=== PATIENT | female | born 1965 | race Caucasian/White ===

== ENCOUNTER 2024-07-29 12:52 | Emergency (ER) | payer BC ==
[~2024-07-29] VITALS: Ht 167.6 cm; Wt 64.4 kg
[2024-07-29 13:09] VITALS: BP 131/85; TEMP 98.2; O2SAT 99
[2024-07-29] MEDS ORDERED: LIDOCAINE HCL/PF 1% 30 ML VIAL TP ONE (13:30)
[2024-07-29] MEDS ORDERED: LIDOCAINE 1% INJ 50 ML MDV IJ ONE (13:53)
== END 2024-07-29 14:25 | disposition home or self-care (01) ==
LOC: ER 13:01
DX: S63.283A Dislocation of proximal interphalangeal joint of left middle finger, initial encounter (principal); W18.30XA Fall on same level, unspecified, initial encounter; Y93.89 Activity, other specified; Y92.89 Other specified places as the place of occurrence of the external cause; Y99.8 Other external cause status
CPT/HCPCS: 99284; 26770; 73130; J3490